=== PATIENT | female | born 1990 | race Caucasian/White ===

== ENCOUNTER → 2024-03-05 18:36 | Outpatient (BNVA) | payer BC, SELFPAY | PROVIDERS: Family Provider Physician Assistant; PCP Physician Assistant; Visit Provider Nurse Practitioner | DX: J02.9 Acute pharyngitis, unspecified (principal) | CPT/HCPCS: 87071; 87880 ==

== ENCOUNTER → 2024-09-25 08:31 | Outpatient (BNVA) | payer BC, SELFPAY | PROVIDERS: Family Provider Physician Assistant; PCP Physician Assistant; Visit Provider Nurse Practitioner | DX: M25.531 Pain in right wrist (principal); M25.532 Pain in left wrist; R20.2 Paresthesia of skin | CPT/HCPCS: 73110 ==

== ENCOUNTER → 2024-12-17 14:40 | Outpatient (BNVA) | payer BC, SELFPAY | PROVIDERS: Family Provider Physician Assistant; Visit Provider Nurse Practitioner | DX: M06.4 Inflammatory polyarthropathy (principal) | CPT/HCPCS: 80053; 84550; 85025; 85651; 86200; 86225; 86235; 86431 ==

== ENCOUNTER → 2024-12-26 15:11 | Outpatient (BNVA) | payer BC, SELFPAY | PROVIDERS: Family Provider Physician Assistant; Visit Provider Nurse Practitioner | DX: M06.4 Inflammatory polyarthropathy (principal) | CPT/HCPCS: 86140 ==